=== PATIENT | female | born 1975 | race Two or more races ===

== ENCOUNTER 2020-01-01 16:50 | Inpatient (IN) | payer MEDICAID, OTHER ==
[~2020-01-01] VITALS: Ht 167.6 cm; Wt 161.3 kg
[2020-01-01] MEDS ORDERED: SODIUM CHLORIDE 0.9% 1,000 ML IVB ONE (18:00)
[2020-01-01 18:31] LABS: Basophils # (auto) 0.1 10 ^3/uL (0-0.2); Basophils % (auto) 0.8 % (0.0-2.0); Eosinophils # (auto) 0.1 10 ^3/uL (0-0.8); Neutrophils # (auto) 7.5 10 ^3/uL (1.6-8.6)
[2020-01-01 18:33] LABS: Hemoglobin 13.9 g/dL (12.2-16.2); Lymphocytes # (auto) 1.4 10 ^3/uL (0.4-5.4); Lymphocytes % (auto) 14.7 % (10.0-50.0); Mean Corpuscular Hemoglobin 27.5 pg (28.0-32.0); Mean Corpuscular Hgb Conc. 33.8 g/dL (32.0-36.0); Mean Corpuscular Volume 81.5 fL (80.0-100.0); Monocytes # (auto) 0.7 10 ^3/uL (0-1.3); Monocytes % (auto) 7.4 % (0.0-12.0); Neutrophils % (auto) 76.1 % (37.0-80.0); Nucleated Red Blood Cells % 0.1 %; Platelet Count (auto) 256 10^3/uL (140-450); Red Blood Cells 5.03 10^6/uL (4.0-5.20); Red Cell Distribution Width 14.2 % (11.8-14.3); White Blood Cell 9.8 10^3/uL (4.4-10.8)
[2020-01-01 18:50] LABS: Calcium 8.8 mg/dL (8.5-10.1); Potassium 3.7 mmol/L (3.5-5.1)
[2020-01-01 18:58] LABS: Albumin 3.4 g/dL (3.4-5.0); BUN/Creatinine Ratio 19.3; Bilirubin, Total 0.3 mg/dL (0.2-1.0); Total Protein 7.4 g/dL (6.4-8.2)
[2020-01-01 19:04] LABS: Urine Bacteria FEW /hpf (None Seen); Urine Blood Negative /uL (Negative); Urine Mucus FEW (None Seen); Urine Specific Gravity 1.031 (1.001-1.035); Urine WBC 36 /hpf (0 - 5)
[2020-01-01] MEDS ORDERED: ACETAMINOPHEN 325 MG TAB PO ONE (19:30)
[2020-01-01 19:36] LABS: Alcohol, Urine < 3.0 mg/dL (0-10); Amphetamine Screen, Urine NEGATIVE (NEGATIVE); Barbiturate Scree,Urine NEGATIVE (NEGATIVE); Benzodiazephine Screen, Urine NEGATIVE (NEGATIVE); Cannabinoid Screen, Urine NEGATIVE (NEGATIVE); Cocaine Screen, Urine NEGATIVE (NEGATIVE); Opiate Scree,Urine NEGATIVE (NEGATIVE); Phencyclidine Screen, Urine NEGATIVE (NEGATIVE)
[2020-01-01] MEDS ORDERED: DEXTROSE (50%) 50ML SYRG IV PRN (21:30)
[2020-01-01] MEDS ORDERED: MORPHINE SULF INJ 2 MG/ML SYRINGE 1ML IV PRN (21:30)
[2020-01-01] MEDS ORDERED: DOCUSATE SOD 100 MG CAP PO PRN (21:30)
[2020-01-01] MEDS ORDERED: NITROGLYCERIN 0.4 MG SL TAB SL PRN (21:30)
[2020-01-01] MEDS: ATORVASTATIN 20 MG TAB PO SCH (22:06)
[2020-01-01] MEDS: SODIUM CHLOR 0.9% PF (SALINE LOCK) 10ML VIAL/SYR IV SCH (22:06)
[2020-01-01] MEDS: ACCU-CHEK COMFORT CURVE STRIP VI SCH (22:06)
[2020-01-01] MEDS: ASCORBIC ACID 500 MG TAB PO SCH (22:06)
[2020-01-01] MEDS: InsuLIN REG 1unit/0.01ml Soln (100units/ml) SC SCH (22:10)
[2020-01-01] MEDS: MORPHINE SULFATE 4 MG/ML SYR/VIAL IV PRN (22:11)
[2020-01-01] MEDS: ONDANSETRON HCL 4 MG/2 ML VIAL IV PRN (22:12)
[2020-01-01] MEDS: METOPROLOL TARTRATE 50 MG TAB PO SCH (23:16)
[2020-01-01 23:30] VITALS: BP 106/67
--- NOTE | 2020-01-01 23:30 | NUR ---
Patient unable to recall home medications, dosages, and frequencies. Asked patient to have family call and inform this RN of patient's home medications. Patient verbalized understanding. Patient attempted to call son to no response. Will continue care.
--- NOTE | 2020-01-01 23:30 | NUR ---
Telemetry admit from [facility] admitted to Telemetry unit. Patient oriented to MARSHALL VELÁSQUEZ RN primary RN, unit, room, bed, and unit policies regarding patient care and visiting hours. Patient now on continuous telemetry monitoring, tele box # 59 and telemetry reading on arrival to unit is sinus rhythm at 70 beats per minute. Patient weighed by bedscale and encouraged to call if they need something. All questions and concerns addressed, patient verbalized understanding. Bed in lowest locked position, side rails up x2, call light within reach. Will round every hour and as needed and continue to monitor.
[2020-01-02] MEDS: HYDROcodone-ACET 5/325MG TAB PO PRN ×2 (00:45→07:06)
--- NOTE | 2020-01-02 00:56 | NUR ---
Patient reporting 6/10 headache. Patient aware Morphine not due at this time, requesting Tylenol. Will administer and continue to monitor.
[2020-01-02] MEDS: ACETAMINOPHEN 325 MG TAB PO PRN (00:57)
[2020-01-02] MEDS: MORPHINE SULFATE 4 MG/ML SYR/VIAL IV PRN ×4 (02:39→22:57)
[2020-01-02] MEDS: ONDANSETRON HCL 4 MG/2 ML VIAL IV PRN ×4 (02:39→22:57)
--- NOTE | 2020-01-02 03:00 | NUR ---
Patient reporting itching sensation after Morphine administration. Slight redness and swelling noted above IV site. IV discontinued and pressure dressing applied. IV catheter noted to be intact on removal. Patient tolerated well. Cold pack given and adult basic education instructor hospitalist paged, awaiting call back at this time.
--- NOTE | 2020-01-02 03:02 | NUR ---
registered dental hygienist hospitalist LEANDRO Vargas returned call at this time. New order received for Benadryl 25 MG PO every six hours PRN itching. Order read back and verified, will implement as ordered and continue to monitor.
[2020-01-02] MEDS ORDERED: diphenhdrAMINE HCL 25 MG CAP PO PRN (03:15)
--- NOTE | 2020-01-02 03:30 | NUR ---
IV access obtained, via clean sterile technique by inserting 22 gauge catheter to patient's right hand after one attempt. IV secured properly. No trauma to site. Patient tolerated well. Patient reports decrease in itching sensation, will continue to monitor.
[2020-01-02 05:33] VITALS: BP 111/42
[2020-01-02 05:37] LABS: Basophils # (auto) 0.1 10 ^3/uL (0-0.2); Basophils % (auto) 0.9 % (0.0-2.0); Hemoglobin 13.6 g/dL (12.2-16.2); Lymphocytes # (auto) 1.8 10 ^3/uL (0.4-5.4); Mean Corpuscular Hgb Conc. 32.4 g/dL (32.0-36.0); Monocytes # (auto) 0.5 10 ^3/uL (0-1.3); Neutrophils # (auto) 3.9 10 ^3/uL (1.6-8.6); Neutrophils % (auto) 61.1 % (37.0-80.0); Red Blood Cells 5.06 10^6/uL (4.0-5.20)
[2020-01-02 05:39] LABS: Eosinophils # (auto) 0.1 10 ^3/uL (0-0.8); Eosinophils % (auto) 2.1 % (0.0-7.0); Hematocrit 42.1 % (36.0-46.0); Lymphocytes % (auto) 27.5 % (10.0-50.0); Mean Corpuscular Hemoglobin 26.9 pg (28.0-32.0); Mean Corpuscular Volume 83.1 fL (80.0-100.0); Monocytes % (auto) 8.4 % (0.0-12.0); Nucleated Red Blood Cells % 0.1 %; Platelet Count (auto) 268 10^3/uL (140-450); Red Cell Distribution Width 14.2 % (11.8-14.3); White Blood Cell 6.4 10^3/uL (4.4-10.8)
[2020-01-02 05:55] LABS: Potassium 3.7 mmol/L (3.5-5.1)
[2020-01-02] MEDS: SODIUM CHLOR 0.9% PF (SALINE LOCK) 10ML VIAL/SYR IV SCH ×3 (06:00→22:00)
[2020-01-02 06:08] LABS: Albumin 3.2 g/dL (3.4-5.0); BUN/Creatinine Ratio 22.4; Bilirubin, Total 0.4 mg/dL (0.2-1.0); Calcium 8.9 mg/dL (8.5-10.1); Total Protein 7.1 g/dL (6.4-8.2)
[2020-01-02] MEDS: ACCU-CHEK COMFORT CURVE STRIP VI SCH ×4 (06:39→22:00)
[2020-01-02] MEDS: InsuLIN REG 1unit/0.01ml Soln (100units/ml) SC SCH ×4 (07:04→22:46)
--- NOTE | 2020-01-02 07:05 | NUR ---
Knife noted in patient's belongings. Knife placed in personal property bag with patient's signature. Bag sealed and copy made and placed in patient's hard chart. Security at nurse's station to escort knife to hospital safe.
--- NOTE | 2020-01-02 07:30 | NUR ---
Patient lying in bed, awake and alert. No s/s of distress. Call light within reach. Will endorse care to dayshift RN.
--- NOTE | 2020-01-02 07:32 | NUR ---
RECEIVED REPORT FROM NIGHT NURSE. PATIENT RESTING IN BED, NO DISTRESS NOTED. WILL CONTINUE TO MONITOR.
[2020-01-02 09:00] VITALS: BP 142/42
[2020-01-02] MEDS: ZINC SULFATE 220mg CAP or TAB PO SCH (10:00)
[2020-01-02] MEDS: ENOXAPARIN SOD 40 MG/0.4 ML SYRINGE SC SCH (10:04)
[2020-01-02] MEDS: MULTIPLE VITAMIN TAB PO SCH (10:04)
[2020-01-02] MEDS: ASPirin 81 mg TAB PO SCH (10:04)
[2020-01-02] MEDS: PANTOPRAZOLE 40 MG/10 ML VIAL INJ IV SCH (10:04)
[2020-01-02] MEDS: ASCORBIC ACID 500 MG TAB PO SCH ×2 (10:05→22:35)
[2020-01-02] MEDS: METOPROLOL TARTRATE 50 MG TAB PO SCH ×2 (10:05→22:35)
--- NOTE | 2020-01-02 12:12 | NUR ---
SPOKE WITH DOCTOR RODRIGUEZ. ORDERS RECEIVED, WILL PLACE AND CARRY OUT.
[2020-01-02] MEDS ORDERED: cefTRIAXone 1GM/50ML D5W 50 ML IV ONE (12:15)
[2020-01-02 13:00] VITALS: BP 141/75
[2020-01-02] MEDS: GABAPENTIN 300 MG CAP PO SCH ×2 (15:36→22:35)
[2020-01-02 17:00] VITALS: BP 118/60
[2020-01-02] MEDS: SUCRALFATE 1 GM/10 ML ORAL SUSP PO SCH ×2 (18:11→22:34)
[2020-01-02] MEDS: glipiZIDE 5 MG TAB PO SCH (18:11)
[2020-01-02 22:00] VITALS: BP 131/80
[2020-01-02] MEDS: ATORVASTATIN 20 MG TAB PO SCH (22:35)
[2020-01-03] MEDS: ACETAMINOPHEN 325 MG TAB PO PRN ×2 (01:05→14:09)
--- NOTE | 2020-01-03 03:55 | NUR ---
Patient off unit to smoke. No s/s of distress on departure from unit. Patient aware to return to room within thirty minutes, verbalized understanding. Addendum: 01/03/20 at 0359 by MARSHALL VELÁSQUEZ RN RN CORRECTION: Please disregard, wrong patient.
[2020-01-03 05:00] VITALS: BP 126/75
[2020-01-03] MEDS: SODIUM CHLOR 0.9% PF (SALINE LOCK) 10ML VIAL/SYR IV SCH ×3 (06:24→21:20)
[2020-01-03] MEDS: ACCU-CHEK COMFORT CURVE STRIP VI SCH ×4 (06:25→21:21)
[2020-01-03] MEDS: GABAPENTIN 300 MG CAP PO SCH ×3 (06:31→21:21)
[2020-01-03] MEDS: SUCRALFATE 1 GM/10 ML ORAL SUSP PO SCH ×4 (06:31→21:20)
[2020-01-03] MEDS: InsuLIN REG 1unit/0.01ml Soln (100units/ml) SC SCH ×4 (06:32→21:22)
[2020-01-03] MEDS: glipiZIDE 5 MG TAB PO SCH ×2 (06:32→18:01)
--- NOTE | 2020-01-03 07:10 | NUR ---
Patient lying in bed, awake and alert. No s/s of distress. Call light within reach. Will endorse care to dayshift RN.
[2020-01-03 08:04] LABS: Basophils # (auto) 0.1 10 ^3/uL (0-0.2); Eosinophils # (auto) 0.2 10 ^3/uL (0-0.8); Hemoglobin 13.2 g/dL (12.2-16.2); Lymphocytes # (auto) 1.6 10 ^3/uL (0.4-5.4); Monocytes # (auto) 0.6 10 ^3/uL (0-1.3)
[2020-01-03 08:07] LABS: Basophils % (auto) 0.8 % (0.0-2.0); Eosinophils % (auto) 2.3 % (0.0-7.0); Hematocrit 40.7 % (36.0-46.0); Lymphocytes % (auto) 18.1 % (10.0-50.0); Mean Corpuscular Hemoglobin 26.7 pg (28.0-32.0); Mean Corpuscular Hgb Conc. 32.5 g/dL (32.0-36.0); Mean Corpuscular Volume 82.1 fL (80.0-100.0); Monocytes % (auto) 6.5 % (0.0-12.0); Neutrophils # (auto) 6.4 10 ^3/uL (1.6-8.6); Neutrophils % (auto) 72.3 % (37.0-80.0); Nucleated Red Blood Cells % 0.1 %; Platelet Count (auto) 250 10^3/uL (140-450); Red Blood Cells 4.96 10^6/uL (4.0-5.20); White Blood Cell 8.9 10^3/uL (4.4-10.8)
[2020-01-03 08:23] LABS: BUN/Creatinine Ratio 18.4; Potassium 3.6 mmol/L (3.5-5.1)
[2020-01-03 09:00] VITALS: BP 114/67
[2020-01-03] MEDS: MULTIPLE VITAMIN TAB PO SCH (09:13)
[2020-01-03] MEDS: ASPirin 81 mg TAB PO SCH (09:13)
[2020-01-03] MEDS: ZINC SULFATE 220mg CAP or TAB PO SCH (09:14)
[2020-01-03] MEDS: PANTOPRAZOLE 40 MG/10 ML VIAL INJ IV SCH (09:14)
[2020-01-03] MEDS: cefTRIAXone 1GM/50ML D5W 50 ML IV SCH (09:14)
[2020-01-03] MEDS: ONDANSETRON HCL 4 MG/2 ML VIAL IV PRN (09:15)
[2020-01-03] MEDS: MORPHINE SULFATE 4 MG/ML SYR/VIAL IV PRN ×3 (09:15→21:21)
[2020-01-03] MEDS: ENOXAPARIN SOD 40 MG/0.4 ML SYRINGE SC SCH (09:19)
[2020-01-03] MEDS: METOPROLOL TARTRATE 50 MG TAB PO SCH ×2 (09:19→21:20)
[2020-01-03] MEDS: ASCORBIC ACID 500 MG TAB PO SCH ×2 (09:20→21:20)
[2020-01-03 13:00] VITALS: BP 122/74
[2020-01-03] MEDS ORDERED: HYOSCYAMINE SULF 0.125 MG ODT TAB PO PRN (14:30)
--- NOTE | 2020-01-03 15:42 | NUR ---
assessment Patient is a 44 year old female who is alert and oriented. Patients cognitive abilities are intact. Patients emotional state is stable. Prior to admission patient lived home with family and functioned independently. Patient informed me she is able to care for her own ADLs. Per patient she will return home to her prior living arrangements post discharge and family will transport her home. I informed patient of her ss consult for new to the area, needs PCP, and requesting advanced directive. I provided patient with advanced directive, Annika Camilo will see patient for new PCP. At the time patients PCP is Dr Mauricio in [place]. Patient has no concerns regarding returning home on discharge. Patient has good family support. I informed patient she has a right to speak to a social media sr strategy manager regarding all care. I informed patient she has a right to participate in any and all discharge planning. Patient does not have a POA and advanced directive. I have offered patient information on POA and advanced directives. I informed the patient the advantages and benefits of having an Advanced Directive. Patient verbalized understanding and agreed to discharge plan. Addendum: 01/03/20 at 1545 by Annika Mehta Amended: Links added.
[2020-01-03 17:00] VITALS: BP 110/52
[2020-01-03] MEDS: HYDROcodone-ACET 5/325MG TAB PO PRN ×2 (17:55→22:39)
--- NOTE | 2020-01-03 19:00 | NUR ---
Opening Shift Note Assumed care of patient, awake and alert. No S/S of distress/SOB, patient c/o neuropathy pain secondary to diabetes. Instructed on POC and to callfor assist PRN, will continue to monitor for changes Q1hr and PRN. Patient in the lowest possible position with call light within reach.
[2020-01-03 20:00] VITALS: BP 120/82
[2020-01-03] MEDS: ATORVASTATIN 20 MG TAB PO SCH (21:20)
--- NOTE | 2020-01-03 21:30 | NUR ---
Patient complains of pain 10/10, medication to be given per protocol.
[2020-01-03 22:00] VITALS: BP 120/82
--- NOTE | 2020-01-03 22:00 | NUR ---
Dr. Sanderson at bedside. New orders in place. Will continue to monitor patient.
[2020-01-03] MEDS ORDERED: LORazepam 2MG/ML-1ML VIAL IV PRN (22:30)
--- NOTE | 2020-01-03 22:41 | NUR ---
Patient complaints of headache, and constant neuropathy pain, patient states that she takes 800mg gabapentin TID with tramadol BID. [place] to be given for breakthrough pain per protocol.
[2020-01-04] MEDS: MORPHINE SULFATE 4 MG/ML SYR/VIAL IV PRN ×2 (03:01→07:02)
[2020-01-04 05:00] VITALS: BP 102/67
[2020-01-04] MEDS ORDERED: OMNIPAQUE ORAL SOLN 500ml 12mg/ml PO ONE (06:02)
[2020-01-04] MEDS ORDERED: GASTROGRAFIN 30 ML SOL ONE (06:04)
[2020-01-04] MEDS: SODIUM CHLOR 0.9% PF (SALINE LOCK) 10ML VIAL/SYR IV SCH ×2 (06:08→14:00)
[2020-01-04 06:19] LABS: Basophils # (auto) 0.1 10 ^3/uL (0-0.2); Basophils % (auto) 0.8 % (0.0-2.0); Eosinophils # (auto) 0.2 10 ^3/uL (0-0.8); Eosinophils % (auto) 2.5 % (0.0-7.0); Hematocrit 37.8 % (36.0-46.0); Hemoglobin 12.7 g/dL (12.2-16.2); Lymphocytes # (auto) 1.9 10 ^3/uL (0.4-5.4); Lymphocytes % (auto) 27.1 % (10.0-50.0); Mean Corpuscular Hemoglobin 27.4 pg (28.0-32.0); Mean Corpuscular Hgb Conc. 33.6 g/dL (32.0-36.0); Mean Corpuscular Volume 81.5 fL (80.0-100.0); Monocytes # (auto) 0.6 10 ^3/uL (0-1.3); Monocytes % (auto) 8.6 % (0.0-12.0); Neutrophils # (auto) 4.3 10 ^3/uL (1.6-8.6); Nucleated Red Blood Cells % 0.1 %; Platelet Count (auto) 250 10^3/uL (140-450); Red Blood Cells 4.64 10^6/uL (4.0-5.20); Red Cell Distribution Width 14.1 % (11.8-14.3)
[2020-01-04 06:21] LABS: % Iron Saturation 14.6 % (15-50)
[2020-01-04] MEDS: GABAPENTIN 300 MG CAP PO SCH ×3 (06:21→14:00)
[2020-01-04] MEDS: glipiZIDE 5 MG TAB PO SCH (06:22)
[2020-01-04] MEDS: SUCRALFATE 1 GM/10 ML ORAL SUSP PO SCH ×2 (06:22→10:34)
[2020-01-04] MEDS: ACCU-CHEK COMFORT CURVE STRIP VI SCH ×2 (06:22→12:21)
[2020-01-04] MEDS: InsuLIN REG 1unit/0.01ml Soln (100units/ml) SC SCH ×2 (06:23→12:20)
[2020-01-04 06:25] LABS: Potassium 3.6 mmol/L (3.5-5.1)
[2020-01-04 06:29] LABS: BUN/Creatinine Ratio 22.1; Calcium 8.5 mg/dL (8.5-10.1)
--- NOTE | 2020-01-04 06:51 | NUR ---
IV insertion IV access obtained, via clean sterile technique by inserting 20 gauge catheter at Left forearm after 2 attempts. IV secured properly. No trauma to site. Patient tolerated well. IV put in place for IV contrast to be done this AM.
[2020-01-04] MEDS ORDERED: KETOROLAC TROMETH 30 MG/ML 1ML VIAL ONE (07:08)
[2020-01-04] MEDS ORDERED: MORPHINE SULF(PF) 0.5MG/ML 10ML VIAL ONE (07:08)
--- NOTE | 2020-01-04 08:42 | NUR ---
Administered PRN one time dose Ativan for MRI . Patient taken to go to MRI and CT.
[2020-01-04] MEDS ORDERED: ASCORBIC ACID 500 MG TAB PO SCH (10:00)
[2020-01-04] MEDS: PANTOPRAZOLE 40 MG/10 ML VIAL INJ IV SCH (10:33)
[2020-01-04] MEDS: cefTRIAXone 1GM/50ML D5W 50 ML IV SCH (10:34)
[2020-01-04] MEDS: ENOXAPARIN SOD 40 MG/0.4 ML SYRINGE SC SCH (10:34)
[2020-01-04] MEDS: MULTIPLE VITAMIN TAB PO SCH (10:34)
[2020-01-04] MEDS: ZINC SULFATE 220mg CAP or TAB PO SCH (10:34)
[2020-01-04] MEDS: ASPirin 81 mg TAB PO SCH (10:34)
[2020-01-04] MEDS: METOPROLOL TARTRATE 50 MG TAB PO SCH (10:45)
[2020-01-04] MEDS: HYDROcodone-ACET 5/325MG TAB PO PRN (11:23)
[2020-01-04 13:00] VITALS: BP 142/90
[2020-01-04] MEDS ORDERED: ATOR20TA50 PO (13:27)
[2020-01-04] MEDS ORDERED: PANT40TA2 PO (13:27)
[2020-01-04] MEDS ORDERED: ASPI81CH43 PO (13:27)
[2020-01-04] MEDS ORDERED: MET50T PO (13:27)
--- NOTE | 2020-01-04 14:45 | NUR ---
Discharge instructions given as ordered. Encourage patient to follow up with Primary Care Provider [phone] located at [address] [place] [address] . Patient said she wants to make the appointment herself. Patient verbalized understanding that she needs to follow up within 1 week. Discharge instructions and education given and all questions and concerns addressed. Patient verbalized understanding. Medication reconciliation form completed and copy given to patient, patient states that she does not know which medication she was taking at home , aware and prescribed new medication for patient. New medications called in to patient's preferred pharmacy , patient confirmed that [facility] received prescription.Valuable ( knife) held in security returned to patient. 2 IV removed with catheters intact, pressure dressing applied Telemetry unit returned to ICU. Patient taken to vehicle via wheelchair with all personal belongings, accompanied by staff and family member. No distress noted at time of departure. Addendum: 01/04/20 at 1711 by JAVI ONEILL RN RN Wrong time
--- NOTE | 2020-01-04 15:12 | NUR ---
Spoke to she said patient will be discharged today. She also explained to the patient she needs to follow up with her PCP and get a referral from PCP for a direct entry midwife to control her diabetes. also called in prescription medications at patient's preferred pharmacy. Patient received confirmation from [facility].
[2020-01-04] MEDS: ACETAMINOPHEN 325 MG TAB PO PRN (15:25)
--- NOTE | 2020-01-04 16:45 | NUR ---
Discharge instructions given as ordered. Encourage patient to follow up with Primary Care Provider [phone] located at [address] [place] [address] . Patient said she wants to make the appointment herself. Patient verbalized understanding that she needs to follow up within 1 week. Discharge instructions and education given and all questions and concerns addressed. Patient verbalized understanding. Medication reconciliation form completed and copy given to patient, patient states that she does not know which medication she was taking at home , aware and prescribed new medication for patient. New medications called in to patient's preferred pharmacy , patient confirmed that [facility] received prescription.Valuable ( knife) held in security returned to patient. 2 IV removed with catheters intact, pressure dressing applied Telemetry unit returned to ICU. Patient taken to vehicle via wheelchair with all personal belongings, accompanied by staff and family member. No distress noted at time of departure.
[2020-01-04] MEDS ORDERED: FERROUS SULFATE 325 MG TAB PO SCH (18:00)
== END 2020-01-04 16:35 | disposition home or self-care (01) | DRG 54 ==
LOC: EDBD 16:50 → ER 16:58 → TELE 21:25 → TELE-WESTW 23:30
PROVIDERS: ADMIT Nurse Practitioner Family; ATTEND Internal Medicine Nephrology
DX: G43.909 Migraine, unspecified, not intractable, without status migrainosus (principal); N17.0 Acute kidney failure with tubular necrosis; E11.40 Type 2 diabetes mellitus with diabetic neuropathy, unspecified; E11.65 Type 2 diabetes mellitus with hyperglycemia; E66.01 Morbid (severe) obesity due to excess calories; E87.1 Hypo-osmolality and hyponatremia; E11.22 Type 2 diabetes mellitus with diabetic chronic kidney disease; Z68.43 Body mass index [BMI] 50.0-59.9, adult; R10.9 Unspecified abdominal pain; I12.9 Hypertensive chronic kidney disease with stage 1 through stage 4 chronic kidney disease, or unspecified chronic kidney disease; E78.5 Hyperlipidemia, unspecified; G89.29 Other chronic pain; F17.200 Nicotine dependence, unspecified, uncomplicated; K76.0 Fatty (change of) liver, not elsewhere classified; N18.9 Chronic kidney disease, unspecified; Z79.82 Long term (current) use of aspirin; Z79.899 Other long term (current) drug therapy; Z82.3 Family history of stroke; Z82.49 Family history of ischemic heart disease and other diseases of the circulatory system; Z83.3 Family history of diabetes mellitus; Z90.710 Acquired absence of both cervix and uterus
CPT/HCPCS: 36415; 70450; 70551; 71045; 74018; 74177; 80048; 80053; 80061; 80307; 81001; 82728; 82962; 83036; 83540; 83550; 83735; 84443; 84484; 85025; 87086; 93005; 93306; 93886; 96360; 96372; C9113; G0378; J0696; J1815; J1885; J2405

== ENCOUNTER 2020-01-09 22:47 | Emergency (ER) | payer MEDICAID ==
[~2020-01-09] VITALS: Ht 167.6 cm; Wt 158.8 kg
[~2020-01-09 22:47] MED LIST: ASPI81CH43 PO; ATOR20TA50 PO; MET50T PO; PANT40TA2 PO
[2020-01-09 23:40] LABS: INR 0.96 (0.9-1.15)
[2020-01-09 23:44] LABS: Albumin 3.5 g/dL (3.4-5.0); Magnesium 1.9 mg/dL (1.6-2.6); Potassium 3.7 mmol/L (3.5-5.1)
[2020-01-09 23:46] LABS: Basophils # (auto) 0.1 10 ^3/uL (0-0.2); Basophils % (auto) 0.7 % (0.0-2.0); Eosinophils # (auto) 0.2 10 ^3/uL (0-0.8); Monocytes # (auto) 0.5 10 ^3/uL (0-1.3); Nucleated Red Blood Cells % 0.1 %; Red Blood Cells 4.87 10^6/uL (4.0-5.20)
[2020-01-10 02:03] LABS: BUN/Creatinine Ratio 23.3; Bilirubin, Total 0.3 mg/dL (0.2-1.0); Eosinophils % (auto) 2.5 % (0.0-7.0); Hematocrit 39.4 % (36.0-46.0); Hemoglobin 13.1 g/dL (12.2-16.2); Lymphocytes # (auto) 1.6 10 ^3/uL (0.4-5.4); Lymphocytes % (auto) 20.9 % (10.0-50.0); Mean Corpuscular Hemoglobin 26.8 pg (28.0-32.0); Mean Corpuscular Hgb Conc. 33.2 g/dL (32.0-36.0); Mean Corpuscular Volume 80.8 fL (80.0-100.0); Monocytes % (auto) 6.5 % (0.0-12.0); Neutrophils # (auto) 5.5 10 ^3/uL (1.6-8.6); Neutrophils % (auto) 69.4 % (37.0-80.0); Platelet Count (auto) 258 10^3/uL (140-450); Red Cell Distribution Width 14.1 % (11.8-14.3); Total Protein 7.7 g/dL (6.4-8.2); White Blood Cell 7.9 10^3/uL (4.4-10.8)
[2020-01-10 03:14] VITALS: BP 164/78
[2020-01-10] MEDS ORDERED: MAGNESIUM CITRATE SOLUTION 300 ML BTL PO ONE (05:15)
== END 2020-01-10 06:42 | disposition home or self-care (01) ==
LOC: ER 22:48
DX: S16.1XXA Strain of muscle, fascia and tendon at neck level, initial encounter (principal); N39.0 Urinary tract infection, site not specified; K59.00 Constipation, unspecified; K21.9 Gastro-esophageal reflux disease without esophagitis; E11.9 Type 2 diabetes mellitus without complications; I10 Essential (primary) hypertension; Z90.49 Acquired absence of other specified parts of digestive tract; Z90.710 Acquired absence of both cervix and uterus; Z79.82 Long term (current) use of aspirin; Z79.899 Other long term (current) drug therapy
CPT/HCPCS: 36415; 71045; 80053; 83735; 83880; 84443; 84484; 84702; 85025; 85379; 85610; 85730; 93005

== ENCOUNTER 2020-05-31 23:17 | Emergency (ER) | payer MEDICAID ==
[~2020-05-31] VITALS: Ht 165.1 cm; Wt 113.4 kg
[2020-06-01] MEDS ORDERED: MECLIZINE HCL 25 MG TAB PO ONE (00:45)
[2020-06-01 01:30] VITALS: BP 120/61
== END 2020-06-01 02:30 | disposition home or self-care (01) ==
LOC: ER 23:19
DX: R11.0 Nausea (principal); R42 Dizziness and giddiness; H92.09 Otalgia, unspecified ear; I10 Essential (primary) hypertension; E11.9 Type 2 diabetes mellitus without complications; E78.5 Hyperlipidemia, unspecified; Z79.899 Other long term (current) drug therapy
CPT/HCPCS: 93005; 99285; J8597